=== PATIENT | female | born 1965 | race Asian ===

== ENCOUNTER 2017-08-14 10:54 | Emergency (ER) | payer OTHER ==
[2017-08-14 12:49] LABS: ADD MAN DIFF? NO
[2017-08-14 12:51] LABS: WHITE BLOOD COUNT 8.2 10^3/ul (4.8-10.8)
[2017-08-14 12:51] LABS: BASOPHIL # 0.1 10^3/ul (0.0-0.1); BASOPHILS % 0.7 % (0.0-2.0); EOSINOPHILS # 0.1 10^3/ul (0.0-0.5); EOSINOPHILS % 1.3 % (0.0-7.0); HEMATOCRIT 39.9 % (37.0-47.0); HEMOGLOBIN 13.7 g/dl (12.0-16.0); LYMPHOCYTES # 1.9 10^3/ul (0.8-2.9); LYMPHOCYTES % 23.4 % (15.0-51.0); MEAN CORPUSCULAR HEMOGLOBIN 32.6 pg (29.0-33.0); MEAN CORPUSCULAR HGB CONC 34.3 g/dl (32.0-37.0); MEAN PLATELET VOLUME 11.1 fl (7.4-10.4); MONOCYTE # 0.4 10^3/ul (0.3-0.9); MONOCYTES % 5.4 % (0.0-11.0); NEUTROPHIL # 5.6 10^3/ul (1.6-7.5); NEUTROPHILS % 69.1 % (39.0-77.0); PLATELET COUNT 226 10^3/UL (140-415); RED CELL DISTRIBUTION WIDTH 11.8 % (11.5-14.5)
[2017-08-14 13:11] LABS: ALANINE AMINOTRANSFERASE 29 IU/L (13-69); ALBUMIN 4.7 g/dl (3.3-4.9); ALBUMIN/GLOBULIN RATIO 1.14; ALKALINE PHOSPHATASE 76 IU/L (42-121); ANION GAP 19 (8-16); ASPARTATE AMINO TRANSFERASE 32 IU/L (15-46); BILIRUBIN,INDIRECT 1.5 mg/dl (0-1.1); BILIRUBIN,TOTAL 1.5 mg/dl (0.2-1.3); BLOOD UREA NITROGEN 13 mg/dl (7-20); CALCIUM 9.2 mg/dl (8.4-10.2); CARBON DIOXIDE 25 mmol/L (21-31); CHLORIDE 104 mmol/L (97-110); CREATININE 0.64 mg/dl (0.44-1.00); GLUCOSE 118 mg/dl (70-220); POTASSIUM 4.1 mmol/L (3.5-5.1); SODIUM 144 mmol/L (135-144); TOTAL PROTEIN 8.8 g/dl (6.1-8.1)
[2017-08-14 13:52] LABS: TROPONIN-I < 0.012 ng/ml (0.00-0.12)
[2017-08-14] MEDS ORDERED: DIAZEPAM 5 MG TAB PO (14:00)
[2017-08-14] MEDS: TETANUS IMMUNE GLOB 250 UNIT SYG IM (14:10)
[2017-08-14] MEDS: DIPHENHYDRAMINE 25 MG CAP PO ×2 (14:10→14:11)
[2017-08-14 14:47] LABS: ADD UMIC NO; UR ASCORBIC ACID NEGATIVE (NEGATIVE); UR BILIRUBIN (Dip) NEGATIVE (NEGATIVE); UR BLOOD (Dip) NEGATIVE (NEGATIVE); UR CLARITY CLEAR (CLEAR); UR COLOR YELLOW (YELLOW); UR GLUCOSE (Dip) NEGATIVE (NEGATIVE); UR KETONES (Dip) TRACE mg/dL (NEGATIVE); UR LEUKOCYTE ESTERASE (Dip) NEGATIVE Leu/ul (NEGATIVE); UR NITRITE (Dip) NEGATIVE (NEGATIVE); UR SPECIFIC GRAVITY (Dip) 1.009 (1.003-1.030); UR TOTAL PROTEIN (Dip) NEGATIVE (NEGATIVE); UR UROBILINOGEN (Dip) NEGATIVE (NEGATIVE)
[2017-08-14 15:12] LABS: AMPHETAMINE/METHAMPHETAMINE Negative (NEGATIVE); BARBITURATES Negative (NEGATIVE); BENZODIAZEPINES Negative (NEGATIVE); CANNABINOIDS Negative (NEGATIVE); COCAINE Negative (NEGATIVE); OPIATES Negative (NEGATIVE)
== END 2017-08-14 16:47 | disposition home or self-care (01) ==
LOC: E/R 10:54
DX: A35 Other tetanus (principal); F41.9 Anxiety disorder, unspecified; Z23 Encounter for immunization
CPT/HCPCS: 80053; 80307; 81003; 84484; 85025; 90389; 90471; 93005; 99284-25

== ENCOUNTER 2017-08-15 11:36 | Emergency (ER) | payer OTHER | END 2017-08-15 14:20 | disposition home or self-care (01) | LOC: E/R 11:36 | DX: F41.9 Anxiety disorder, unspecified (principal) | CPT/HCPCS: 99283 ==

== ENCOUNTER 2017-08-28 11:53 | Emergency (ER) | payer OTHER | END 2017-08-28 12:55 | disposition home or self-care (01) | LOC: FTE 11:53 | DX: F45.0 Somatization disorder (principal) | CPT/HCPCS: 99282 ==

== ENCOUNTER 2017-10-08 12:39 | Emergency (ER) | payer OTHER | END 2017-10-08 16:07 | disposition home or self-care (01) | LOC: E/R 12:39 | DX: S91.132A Puncture wound without foreign body of left great toe without damage to nail, initial encounter (principal); X58.XXXA Exposure to other specified factors, initial encounter; Y92.9 Unspecified place or not applicable | CPT/HCPCS: 99282 ==